=== PATIENT | female | born 1980 | race Caucasian/White ===

== ENCOUNTER 2018-10-16 09:53 | Emergency (ER) | payer MEDICARE, MEDICAID ==
[~2018-10-16] VITALS: Ht 167.6 cm; Wt 91.2 kg
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
[2018-10-16] MEDS ORDERED: ibuprofen tablet 400 MG TABLET PO ONE (10:45)
[2018-10-16] MEDS ORDERED: diphenhydrAMINE 50 mg/ml inj IM ONE (10:50)
[2018-10-16] MEDS ORDERED: LORazepam 2 mg/ml vial IM ONE (10:50)
[2018-10-16] MEDS ORDERED: haloperidol lactate 5mg/ml inj IM ONE (10:50)
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
[2018-10-16 12:23] LABS: BASOPHILS % (AUTO) 0.4 % (0-1); EOSINOPHILS % (AUTO) 0.2 % (0-6); HEMATOCRIT 33.8 % (35.0-45.0); HEMOGLOBIN 11.6 g/dl (12.0-16.0); LYMPHOCYTES # (AUTO) 2.8 X10'3 (1.1-4.8); LYMPHOCYTES % (AUTO) 31.1 % (21-51); MEAN CORPUSCULAR HEMOGLOBIN 33.7 PG (27.0-31.0); MEAN CORPUSCULAR HGB CONC 34.3 g/dL (33.0-36.5); MEAN CORPUSCULAR VOLUME 98.2 FL (78-98); MEAN PLATELET VOLUME 7.1 FL (7.4-10.4); MONOCYTES # (AUTO) 0.8 X10'3 (0-0.9); MONOCYTES % (AUTO) 8.6 % (2-12); NEUTROPHILS # (AUTO) 5.3 X10'3 (1.8-7.7); NEUTROPHILS % (AUTO) 59.7 % (42-75); PLATELET COUNT 487 X10'3 (140-440); RED BLOOD COUNT 3.44 X10'6 (4.20-5.60); RED CELL DISTRIBUTION WIDTH 12.9 % (11.5-14.5); WHITE BLOOD COUNT 8.9 X10'3 (4.5-11.0)
--- NOTE | 2018-10-16 12:28 | NUR ---
Pt released at 1210 from restraints and pt walked to the bathroom and with assistance, cleaned herself up and put on new hospital scrubs.
[2018-10-16 12:39] LABS: ALANINE AMINOTRANSFERASE 62 U/L (12-78); ALBUMIN 3.5 G/DL (3.4-5.0); ALBUMIN/GLOBULIN RATIO 0.9 (1.1-1.5); ALKALINE PHOSPHATASE 103 IU/L (46-116); ANION GAP 7 (8-16); ASPARTATE AMINO TRANSFERASE 26 U/L (10-37); BILIRUBIN,TOTAL 0.3 MG/DL (0.1-1.0); BLOOD UREA NITROGEN 7 MG/DL (7-18); BUN/CREATININE RATIO 14.3 (6.6-38.0); CHLORIDE 95 MMOL/L (99-107); CREATININE 0.49 MG/DL (0.40-0.90); GLUCOSE 126 MG/DL (70-104); POTASSIUM 4.1 MMOL/L (3.5-5.1); SODIUM 127 MMOL/L (135-145); TOTAL CARBON DIOXIDE 24.8 MMOL/L (24-32); TOTAL PROTEIN 7.4 G/DL (6.4-8.2); eGFR > 90 ML/MIN
[2018-10-16] MEDS ORDERED: GABA600T13 PO (12:55)
[2018-10-16] MEDS ORDERED: LINA145C PO (12:55)
[2018-10-16] MEDS ORDERED: CLOM50CA2 PO (12:55)
[2018-10-16] MEDS ORDERED: LITH300T26 PO ×2 (12:55)
[2018-10-16] MEDS ORDERED: FLUT1DIS INH (12:55)
[2018-10-16] MEDS ORDERED: MISO200T PO (12:55)
[2018-10-16] MEDS ORDERED: BENZ0.5T27 PO (12:55)
[2018-10-16] MEDS ORDERED: METO-395 PO (12:55)
[2018-10-16] MEDS ORDERED: DESO1TAB71 PO (12:55)
[2018-10-16] MEDS ORDERED: LORA10TA61 PO (12:55)
[2018-10-16] MEDS ORDERED: BENA20TA82 PO (12:55)
[2018-10-16] MEDS ORDERED: METF500T PO (12:55)
[2018-10-16] MEDS ORDERED: DIPH50CA37 PO (12:55)
--- NOTE | 2018-10-16 13:00 | NUR ---
Pt resting quietly in bed. No complaints. Pt was cooperative with blood draw and gave urine sample.
[2018-10-16 13:08] LABS: URINE HCG NEGATIVE (NEG)
[2018-10-16 13:08] LABS: ETHANOL < 0.010 GM/DL (0.0-0.010)
[2018-10-16 13:25] LABS: URINE AMPHETAMINE SCREEN NEGATIVE (Neg); URINE BARBITUATE SCREEN NEGATIVE (Neg); URINE BENZODIAZEPINES SCREEN NEGATIVE (Neg); URINE CANNABINOID SCREEN NEGATIVE (Neg); URINE COCAINE SCREEN NEGATIVE (Neg); URINE METHADONE SCREEN NEGATIVE (Neg); URINE OPIATE SCREEN NEGATIVE (Neg); URINE PHENCYCLIDINE SCREEN NEGATIVE (Neg)
[2018-10-16] MEDS ORDERED: OMEP-50 PO (13:48)
[2018-10-16] MEDS ORDERED: DOCU250C15 PO (13:48)
[2018-10-16] MEDS ORDERED: ICOS1CAP PO (14:10)
[2018-10-16] MEDS ORDERED: MELA3TAB64 PO (14:10)
[2018-10-16] MEDS ORDERED: ALBU18HF2 INH (14:10)
[2018-10-16] MEDS ORDERED: POLY17PO10 PO (14:10)
[2018-10-16] MEDS ORDERED: HYDR50CA PO (14:10)
[2018-10-16] MEDS ORDERED: CHOL10002 PO (14:10)
[2018-10-16] MEDS ORDERED: ASEN10TA (14:10)
[2018-10-16] MEDS ORDERED: HALO5TAB PO (14:14)
--- NOTE | 2018-10-16 14:34 | NUR ---
PACKET FAXED TO [facility]
--- NOTE | 2018-10-16 15:18 | NUR ---
Idalia Olivares phone number is [phone] Jane Victoria (her conservator) phone number is [phone]
[2018-10-16] MEDS ORDERED: benzonatate 100mg capsule PO ONE (15:35)
[2018-10-16] MEDS ORDERED: LORazepam 2 mg/ml vial IM PRN (15:35)
[2018-10-16] MEDS ORDERED: haloperidol 5mg tablet PO PRN (15:35)
[2018-10-16] MEDS: LORazepam 1 MG tablet PO PRN ×2 (15:40→20:08)
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
--- NOTE | 2018-10-16 17:00 | NUR ---
Pt remains sleeping in bed without complaints.
--- NOTE | 2018-10-16 17:56 | NUR ---
Jane Victoria (her conservator) phone number is [phone]
[2018-10-16] MEDS ORDERED: albuterol 2.5 MG/3 ML nebule NEB PRN (18:15)
[2018-10-16] MEDS ORDERED: polyethylene glycol 3350 17gm powd pack PO PRN (18:15)
--- NOTE | 2018-10-16 19:00 | NUR ---
The patient is resting on her bed. She is polite at this time and accepting redirection. She ate her dinner and appears calm at this time.
[2018-10-16] MEDS: budesonide 0.5mg/2ml UD nebule IH SCH (19:40)
[2018-10-16] MEDS: albuterol 2.5 MG/3 ML nebule NEB SCH (19:40)
[2018-10-16] MEDS: docusate sod 250mg capsule PO SCH (19:57)
[2018-10-16] MEDS: PALIPERIDONE 3 MG TAB.ER.24 PO SCH (19:58)
[2018-10-16] MEDS: benztropine 1mg tablet PO SCH (19:58)
[2018-10-16] MEDS: ICOSAPENT ETHYL 1 GM PO SCH (20:00)
[2018-10-16] MEDS ORDERED: lithium carbonate 300mg SR tablet (LithoBID) PO SCH (20:00)
[2018-10-16] MEDS: gabapentin 300mg capsule PO SCH (20:17)
--- NOTE | 2018-10-16 20:37 | NUR ---
The patient's skilled nursing staff, Idalia, was notified that we did not have some of the patient's medications here at [facility] and she stated she will bring in the am but she will call first.
--- NOTE | 2018-10-16 20:41 | NUR ---
Message left for the [facility] Public Guardian's office regarding client being in the ER and asked if they would contact us
[2018-10-16] MEDS ORDERED: Melatonin 3mg tablet PO SCH (21:00)
[2018-10-16] MEDS ORDERED: diphenhydrAMINE 25mg capsule PO SCH (21:00)
[2018-10-16] MEDS ORDERED: CLOMIPRAMINE 50 MG PO SCH (21:00)
[2018-10-16] MEDS ORDERED: metoprolol succinate 25mg (24-HOUR) SR. Tablet PO SCH (21:00)
--- NOTE | 2018-10-16 22:15 | NUR ---
The patient appears to be sleeping
[2018-10-17] MEDS ORDERED: gabapentin 300mg capsule PO SCH
--- NOTE | 2018-10-17 01:16 | NUR ---
The patient appears to be sleeping
--- NOTE | 2018-10-17 02:04 | NUR ---
The patient is sitting up and coughing. RT at the bedside to give a breathing treatment
--- NOTE | 2018-10-17 04:26 | NUR ---
discussed NA level of [address] Holbrook and orders received for a repeat CMP
[2018-10-17 04:40] LABS: ALANINE AMINOTRANSFERASE 52 U/L (12-78); ALBUMIN 3.1 G/DL (3.4-5.0); ALBUMIN/GLOBULIN RATIO 0.9 (1.1-1.5); ALKALINE PHOSPHATASE 92 IU/L (46-116); ANION GAP 7 (8-16); ASPARTATE AMINO TRANSFERASE 24 U/L (10-37); BILIRUBIN,TOTAL 0.2 MG/DL (0.1-1.0); BLOOD UREA NITROGEN 5 MG/DL (7-18); BUN/CREATININE RATIO 8.8 (6.6-38.0); CALCIUM 9.1 MG/DL (8.5-10.1); CHLORIDE 106 MMOL/L (99-107); CREATININE 0.57 MG/DL (0.40-0.90); GLUCOSE 92 MG/DL (70-104); SODIUM 139 MMOL/L (135-145); TOTAL CARBON DIOXIDE 26.4 MMOL/L (24-32); TOTAL PROTEIN 6.6 G/DL (6.4-8.2); eGFR > 90 ML/MIN
--- NOTE | 2018-10-17 06:30 | NUR ---
Awake upon change of shift of shift observation. Asking for "water, coffee, apple juice." Given water and juice at this time.
[2018-10-17] MEDS ORDERED: lithium carbonate 300mg SR tablet (LithoBID) PO SCH (07:00)
[2018-10-17] MEDS ORDERED: metFORMIN 500mg tablet PO SCH (07:00)
[2018-10-17] MEDS: budesonide 0.5mg/2ml UD nebule IH SCH (07:14)
[2018-10-17] MEDS: albuterol 2.5 MG/3 ML nebule NEB SCH ×3 (07:14→15:00)
[2018-10-17] MEDS ORDERED: ibuprofen tablet 400 MG TABLET PO PRN (07:45)
[2018-10-17] MEDS ORDERED: lisinopril 20mg tablet PO SCH (08:00)
[2018-10-17] MEDS ORDERED: loratadine 10mg tablet PO SCH (08:00)
[2018-10-17] MEDS ORDERED: ISIBLOOM PO SCH (08:00)
[2018-10-17] MEDS: ICOSAPENT ETHYL 1 GM PO SCH (08:00)
[2018-10-17] MEDS ORDERED: pantoprazole 40mg Tablet.DR PO SCH (08:00)
[2018-10-17] MEDS ORDERED: LINACLOTIDE PO SCH (08:00)
[2018-10-17] MEDS ORDERED: vitamin D (cholecalciferol) 1,000 unit tablet PO SCH (08:00)
--- NOTE | 2018-10-17 08:00 | NUR ---
Breakfast tray presented to patient. Ate 100% of her meal. Continues to ask for additional fluids. "I need a lot of coffee. It tastes so good."
[2018-10-17] MEDS: benztropine 1mg tablet PO SCH (08:07)
[2018-10-17] MEDS: PALIPERIDONE 3 MG TAB.ER.24 PO SCH (08:07)
[2018-10-17] MEDS: gabapentin 300mg capsule PO SCH ×2 (08:07→13:40)
[2018-10-17] MEDS: LORazepam 1 MG tablet PO PRN ×2 (08:09→14:18)
--- NOTE | 2018-10-17 08:30 | NUR ---
All medications administered as ordered without event.
[2018-10-17] MEDS: docusate sod 250mg capsule PO SCH (08:58)
[2018-10-17] MEDS ORDERED: nicotine 21mg patch - 24 hr TD ONE (09:30)
--- NOTE | 2018-10-17 09:30 | NUR ---
Bharti from [facility] at bedside talking with patient.
--- NOTE | 2018-10-17 10:30 | NUR ---
Idalia Olivares, patient's business support administrator, here to bring in patient's home meds and inquire about patient's status. Patient sleeping soundly at this time and undisturbed by her business support administrator.
--- NOTE | 2018-10-17 13:00 | NUR ---
Served lunch. Ate 100% of her meal.
--- NOTE | 2018-10-17 14:00 | NUR ---
Received information that patient had been accepted at [facility]. Will be brought upstairs at 1518
--- NOTE | 2018-10-17 15:20 | NUR ---
Discharge Note Patient discharged to [facility] ([facility]) via wheelchair, with all her personal belongings. Accompanied by security and [facility] staff
[2018-10-17 16:17] VITALS: BP 123/71
== END 2018-10-17 15:20 ==
LOC: ER 09:54
DX: F20.9 Schizophrenia, unspecified (principal); G89.29 Other chronic pain; M25.571 Pain in right ankle and joints of right foot; M25.572 Pain in left ankle and joints of left foot; M25.551 Pain in right hip; M25.552 Pain in left hip; M79.671 Pain in right foot; M79.672 Pain in left foot; F31.9 Bipolar disorder, unspecified; R62.50 Unspecified lack of expected normal physiological development in childhood; Z91.14 Patient's other noncompliance with medication regimen; E11.9 Type 2 diabetes mellitus without complications; Z56.0 Unemployment, unspecified; Z88.1 Allergy status to other antibiotic agents; Z79.84 Long term (current) use of oral hypoglycemic drugs; Z79.899 Other long term (current) drug therapy
CPT/HCPCS: 36415; 73600; 80053; 80178; 80305; 80320; 81025; 82948; 84443; 85025; 94640; 94760; 96372; 99285; J1200; J1630; J2060; Q0163; J7626

== ENCOUNTER 2018-10-17 15:19 | Inpatient (IN) | payer MEDICARE, MEDICAID ==
[~2018-10-17] VITALS: Ht 175.3 cm; Wt 87.8 kg
[~2018-10-17 15:19] MED LIST: ALBU18HF2 INH; ASEN10TA; BENA20TA82 PO; BENZ0.5T27 PO; CHOL10002 PO; CLOM50CA2 PO; DESO1TAB71 PO; DIPH50CA37 PO; DOCU250C15 PO; FLUT1DIS INH; GABA600T13 PO; HALO5TAB PO; HYDR50CA PO; ICOS1CAP PO; LINA145C PO; LITH300T26 PO; LORA10TA61 PO; MELA3TAB64 PO; METF500T PO; METO-395 PO; MISO200T PO; OMEP-50 PO; POLY17PO10 PO
[2018-10-17] MEDS ORDERED: tuberculin, purif. prot. deriv. 5 units/0.1ml ID ONE (16:00)
[2018-10-17] MEDS ORDERED: acetaminophen 325mg tablet PO PRN (16:00)
[2018-10-17] MEDS ORDERED: magnesium hydroxide 30ml (MOM) UD suspension PO PRN (16:00)
[2018-10-17] MEDS ORDERED: loperamide 2mg capsule PO PRN (16:00)
[2018-10-17] MEDS ORDERED: LORazepam 1 MG tablet PO PRN (16:00)
[2018-10-17] MEDS ORDERED: mag hydrox/Alum hydrox/simeth 30ml oral suspension PO PRN (16:00)
--- NOTE | 2018-10-17 16:05 | NUR ---
Conservator: Jane Victoria VM left with [facility] Guardian office for Jane Victoria who reportably is this pt's conservator. Asked her to call the unit so we can fax her admitting paperwork to sign.
[2018-10-17 17:15] VITALS: BP 137/87
--- NOTE | 2018-10-17 18:07 | NUR ---
ADMIT NOTE: Pt arrived on floor at 1545 Legal hold: 5150 Client on involuntary status for GD. Report received from Darnell LUBIN, with use of SBAR. Why are they here: The patient is a conserved 38 year old female admitted on a 5150 hold for GD. Patient has h/o mild intellect disorder, bipolar and schizophrenia and was BIB her jail staff who reported she had been non-compliant with medications, was violent towards others, verbally hostile with staff, throwing objects and spitting. A 5150 was written for GD. U tox was negative. She reported AH & VH, Voices are taking me away. Assessment What has happened this shift: 1:1 admission assessment performed at bedside. Skin-to skin assessment was done by Amber Deshpande RN & Jennifer. MRSA swab was collected and sent to lab. PPD was placed. Pt was showered, clothing removed and placed into wash. The patients belongings were collected, inventoried and stored in a locked cabinet. She appears to be of stated age. Pt requests tampon and clothing, reports she started her menses. Pt has somewhat delayed speech but is able to answer questions appropriately. She reports trouble hearing in her left ear. Reports she is prescribed glasses but doesnt like to wear them. She has non-productive cough, respiratory therapy came during assessment to do tx. She reported burning sensation in her throat after tx. She also c/o My butt is burning and itchy because I have a hemorrhoid. She states, I also need a bra, my boobs hurt and they have gangrenous fluid coming out of them and it grosses me out. RN did not observe any leaking. Pt reports she is on control and she would like to be off of it. Reports she is sexually active. She would like the depo shot instead of the pill. Pt reports she often has trouble sleeping. 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 Pt is a poor historian and often says Yes to every question asked. She is insistent on getting flavored water and a new outfit. No other concerns voiced at this time. SI/HI: Denies A/VH: Denies Sleep: n/a ADL's: Independent Group attendance: client arrived after groups were over. Were Meds taken: n/a Any med S/E: n/a Mental Status Exam Appearance: Pt wearing green scrubs, disheveled hair Eye contact: direct Behavior: curious, needy (asking for clothes and apple juice multiple times/multiple people) Speech: Clear, slurred at times, somewhat slow rate Mood: euthymic Affect: flat Thought process: goal oriented Thought Content: pt asks multiple times to get new clothes and juice. Cognition: A & O X4 Insight: Poor Judgment: Poor Interventions PRN's used: n/a Therapeutic interventions: 1:1 assessment at bedside, provided therapeutic communication, encouraged to go to groups in AM, coping skills, medication administration/education/monitoring for compliance, monitor Q15 minutes for safety. Restraints/seclusion/emergency medication: Justification of Continued Inpatient Treatment: Pt. was non-medication compliant which led to her GD status. Without adequate treatment for current situation, pt is at high risk for readmission if discharged at this time.
[2018-10-17] MEDS: NICOTINE POLACRILEX 2 MG LOZENGE MM PRN ×2 (19:21→23:15)
[2018-10-17] MEDS: hydrOXYzine 25 MG tablet PO PRN (19:29)
[2018-10-17 20:00] VITALS: BP 153/73
[2018-10-17 20:29] LABS: CLARITY,URINE CLEAR (Clear); COLOR,URINE YELLOW (Yellow); GLUCOSE, URINE NEGATIVE (Neg); KETONES,URINE NEGATIVE (Neg); LEUKOCYTE ESTERASE ,URINE NEGATIVE (Neg); NITRITES, URINE NEGATIVE (Neg); OCCULT BLOOD,URINE NEGATIVE (Neg); PROTEIN,URINE NEGATIVE (Neg); UROBILINOGEN,URINE 0.2 E.U/dL (0.2-1.0)
[2018-10-17 20:37] LABS: UA COLLECTION TYPE CLN CATCH MIDSTREAM
[2018-10-17] MEDS: acetaminophen 325mg tablet PO PRN (20:38)
[2018-10-18 00:30] VITALS: BP 143/84
--- NOTE | 2018-10-18 00:30 | NUR ---
Nursing Note: Med Recc completed and it was noted that pt. is a diabetic and has htn. Accucheck obtained and was 113, V/S remain WNL. HS medications administered at this time per orders from Dr. Dunlap.
[2018-10-18] MEDS ORDERED: haloperidol 5mg tablet PO PRN (01:15)
[2018-10-18] MEDS ORDERED: polyethylene glycol 3350 17gm powd pack PO PRN (01:15)
[2018-10-18] MEDS: NICOTINE POLACRILEX 2 MG LOZENGE MM PRN ×3 (01:20→16:04)
[2018-10-18] MEDS: LORazepam 1 MG tablet PO PRN ×3 (01:30→20:26)
[2018-10-18] MEDS: Melatonin 3mg tablet PO SCH ×2 (01:30→20:38)
[2018-10-18] MEDS: haloperidol 5mg tablet PO PRN ×3 (01:35→20:26)
[2018-10-18] MEDS ORDERED: albuterol 2.5 MG/3 ML nebule NEB PRN (01:40)
[2018-10-18] MEDS ORDERED: lithium carbonate 450mg CR tablet PO SCH ×2 (01:44→01:45)
[2018-10-18] MEDS: lithium carbonate 300mg SR tablet (LithoBID) PO SCH ×3 (01:49→20:39)
--- NOTE | 2018-10-18 04:24 | NUR ---
Nursing Progress Note: Legal hold: LPS Client on involuntary status for GD Report received from nurse with use of SBAR: TRISTIAN Patrick Why are they here: The patient is a conserved 38 year old female admitted on a 5150 hold for GD. Patient has h/o mild intellect disorder, bipolar and schizophrenia and was BIB her snf staff who reported she had been non-compliant with medications, was violent towards others, verbally hostile with staff, throwing objects and spitting. A 5150 was written for GD. U tox was negative. She reported AH & VH, Voices are taking me away. Assessment What has happened this shift: Pt. up and around the unit at the beginning of the shift and throughout the shift, she presents with poor boundaries at times, however is able to be successfully redirected. She changes her cloths many times throughout the shift and must be reminded by staff not to come out into the hallway without clothing on, pt. voices understanding. 1:1 completed at bedside, pt. is cooperative, restless, anxious, and presents a somewhat hypomanic. She is A&O X3, however does not know why she is on the unit. Pt. denies S/I, H/I, or H/A, however she does appear to be internally preoccupied at times and she is witnessed by staff to be making bizarre motions to herself while alone in her room. Pt. makes constant requests to all staff members throughout the shift, requests for medications, and c/o medical ailments. U/A obtained per pt. c/o urinary frequency and WNL, however pt. is incontinent X2 during the shift. Pt. also c/o a dry cough and runny nose, lung sounds are clear bilaterally and VS WNL, will continue to monitor. Pt. also reports constipation, prune juice administered, and will endorse to AM shift to monitor. S/I, H/I: Denies A/VH: Denies, however appears to be internally preoccupied at times Sleep: Insomnia, pt. unable to sleep until approximately 0130 ADL's: Requires direction and encouragement from staff, pt. incontinent at times Group attendance: Attends HS snack Were meds taken: Yes Any med S/E: None Mental Status Exam Appearance: Disheveled, however appropriately dressed Eye contact: Good Behavior: Cooperative, restless, anxious, poor boundaries, and presents as slightly hypomanic Speech: Hyperverbal and child-like Mood: Restless, preoccupied with being in a new environment Affect: Animated Thought process: Tangental with racing thoughts Thought Content: Possible H/A, and preoccupation with material needs, food, medications, and medical conditions Cognition: A&O X3 (not to why she is here) Insight: Poor Judgment: Poor Interventions PRN's used: Atrax, Ativan X2, Tylenol, and Haldol Therapeutic interventions: Introduced self and established rapport, maintained a safe and therapeutic environment, monitored behavior and need for intervention, provided clear and simple instructions, reoriented to reality as needed, completed medication reconciliation, and maintained Q 15 min safety checks. Restraints/seclusion/emergency medication: N/A Justification of Continued Inpatient Treatment: Pt. requires interruption of current crisis, medication adjustments, and a safe and therapeutic environment.
[2018-10-18 07:25] LABS: HEMOGLOBIN A1C 5.6 % (4.5-6.2)
[2018-10-18] MEDS: loratadine 10mg tablet PO SCH (07:28)
[2018-10-18] MEDS: metFORMIN 500mg tablet PO SCH ×2 (07:28→17:50)
[2018-10-18] MEDS: benztropine 1mg tablet PO SCH ×2 (07:29→20:29)
[2018-10-18] MEDS: lisinopril 20mg tablet PO SCH (07:30)
[2018-10-18] MEDS: docusate sod 250mg capsule PO SCH ×2 (07:30→20:30)
[2018-10-18 07:31] LABS: CHOL/HDL RATIO 4.5 (0.00-4.99); CHOLESTEROL 161 MG/DL (0-200); HDL CHOLESTEROL 36 MG/DL (35-60); LDL CHOLESTEROL 103 MG/DL (50-100); TRIGLYCERIDES 117 MG/DL (20-135)
[2018-10-18] MEDS: vitamin D (cholecalciferol) 1,000 unit tablet PO SCH (07:32)
[2018-10-18] MEDS: pantoprazole 40mg Tablet.DR PO SCH (07:32)
[2018-10-18] MEDS: gabapentin 300mg capsule PO SCH ×2 (07:33→15:56)
[2018-10-18] MEDS ORDERED: PALIPERIDONE 3 MG TAB.ER.24 PO SCH (08:00)
[2018-10-18] MEDS: Icosapent Ethyl (Vascepa) 2 CAP) PO SCH ×3 (08:00→20:30)
[2018-10-18] MEDS: nicotine 21mg patch - 24 hr TD SCH (08:00)
[2018-10-18] MEDS ORDERED: non-formulary drug (Fluticasone/Salmeterol (Advair 100-50 Diskus) 1 PUFFS) INH SCH (08:00)
[2018-10-18] MEDS: DESOGESTREL ETHINYL ESTRADIOL PO SCH ×2 (08:00→15:46)
[2018-10-18] MEDS: Linaclotide (Linzess) 72 MCG) PO SCH ×2 (08:00→15:48)
[2018-10-18] MEDS: albuterol 2.5 MG/3 ML nebule NEB SCH ×3 (08:46→20:34)
[2018-10-18] MEDS: budesonide 0.5mg/2ml UD nebule IH SCH ×2 (08:46→20:35)
[2018-10-18 09:19] VITALS: BP 153/85
[2018-10-18] MEDS: acetaminophen 325mg tablet PO PRN (12:44)
[2018-10-18] MEDS: benzocaine/menthol oral lozeng 1 EACH BOX MM PRN (16:41)
--- NOTE | 2018-10-18 17:36 | NUR ---
Nursing Progress Note: Legal hold: LPS Client on involuntary status for GD Report received from nurse with use of SBAR: TRISTIAN Salazar Why are they here: The patient is a conserved 38 year old female admitted on a 5150 hold for GD. Patient has h/o mild intellect disorder, bipolar and schizophrenia and was BIB her detention staff who reported she had been non-compliant with medications, was violent towards others, verbally hostile with staff, throwing objects and spitting. A 5150 was written for GD. U tox was negative. She reported AH & VH, Voices are taking me away. Assessment What has happened this shift: Received Pt standing in her room doorway at the beginning of the shift. Pt receptive to conversation, mostly to make her needs known and has rapid fire demands throughout the day r/t food, clothing, phone calls, and wanting to leave. She has poor boundaries, yet is able to be redirected at times. She is uncomfortable and has a low tolerance for not having her routines, clothing and possessions, and becomes angry and yell at times aggressively. C/O constipation at beginning of shift, then had a very large bowel movement. Did not attend groups and states she will not. Irritated at the lack of meat on her food tray and her inability to eat what she wants and when she wants. C/O body aches and received tylenol with good effect. Used nicotine Gaby. Twice and refused her nicotine patch. She became agitated in afternoon r/t clothing and food issues and willingly took prn oral haldol and ativan, which calmed her.. Pt showered and performed adls with minimal prompting. S/I, H/I: Denies A/VH: Denies, however appears to be internally preoccupied at times Sleep: Took nap after breakfast ADL's: Requires direction and encouragement from staff, pt. incontinent at times Group attendance: No, and made sure staff knew she did not want to go. Were meds taken: Yes Any med S/E: None Mental Status Exam Appearance: Disheveled, however appropriately dressed Eye contact: Good Behavior: Cooperative, restless, anxious, poor boundaries, and presents as slightly hypomanic, intrusive at times Speech: Hyperverbal and child-like Mood: Restless, preoccupied with being in a new environment Affect: Animated Thought process: Tangental with ruminating thoughts Thought Content: Preoccupation with material needs, food, cloting, medications, and medical conditions Cognition: A&O X3 (not to why she is here) Insight: Poor Judgment: Poor Interventions PRN's used: Nicotine Gaby. X2, Ativan, Tylenol, Chloraseptic Gaby. and Haldol Therapeutic interventions: Introduced self and established rapport, maintained a safe and therapeutic environment, monitored behavior and need for intervention, provided clear and simple instructions, reoriented to reality as needed, and maintained Q 15 min safety checks. Restraints/seclusion/emergency medication: N/A Justification of Continued Inpatient Treatment: Pt. requires interruption of current crisis, medication adjustments, and a safe and therapeutic environment.
--- NOTE | 2018-10-18 19:41 | NUR ---
This patient has been ambulatory, she yells at other patients. Patient dumps her trash can in the hallway. The patient is redirected to her room. This patient is advised that yelling at other patients and threatening is wrong and not allowed. The patient is angry but exhibits understanding. Patient states she is depressed. PRN's will be given for anxiety and anger.
[2018-10-18 19:47] VITALS: BP 157/99
[2018-10-18] MEDS: metoprolol succinate 25mg (24-HOUR) SR. Tablet PO SCH (20:25)
[2018-10-18] MEDS ORDERED: CLOMIPRAMINE HCL 50 MG PO SCH (21:00)
[2018-10-18] MEDS ORDERED: diphenhydrAMINE 25mg capsule PO SCH (21:00)
[2018-10-19] MEDS: albuterol 2.5 MG/3 ML nebule NEB SCH ×4 (02:00→20:00)
--- NOTE | 2018-10-19 05:16 | NUR ---
Nursing Progress Note: Legal hold: LPS Client on involuntary status for GD Report received from TRISTIAN Muñoz, with use of SBAR. Why are they here: The patient is a conserved 38 year old female admitted on a 5150 hold for GD. Patient has h/o mild intellect disorder, bipolar and schizophrenia and was BIB her retirement staff who reported she had been non-compliant with medications, was violent towards others, verbally hostile with staff, throwing objects and spitting. A 5150 was written for GD. U tox was negative. She reported AH & VH, Voices are taking me away. Assessment At shift change the patient walked out of her room with a trash can in her hand. She looked angry, she then turned the trash can upside down and dumped the trash onto the floor. The patient was returned to her room and rules were explained to the patient, she exhibited understanding but remained angry. The patient states she is angry because some of her clothes are not here. A few minutes later the patient came into another patients room and yelled at him, she explained her dislike for the other patient. The patient was returned to her room. In the room this patient This production underwriter advised the patient that yelling and threatening other patients would not be tolerated at all. The patient was advised that if there is anger or other issues that they could be dealt with by discussion and dealing with identified problems. The patient was also advised by this production underwriter that if medications for anxiety are needed that they would be offered. This patient exhibited understanding. This patient was later given her night time ativan, haldol, bendaryl, and atarax. The patient calmed, ate some snacks. At the moment of going to sleep patient was much calmer and was polite to this production underwriter. The patient was advised that she was in a safe place. Q15 minute rounding are being done for patient safety. S/I, H/I: Denies A/VH: Denies, however appears to be internally preoccupied at times Sleep: Patient states she has not been sleeping well. ADL's: Requires direction and encouragement from staff. Limitations on behavior were placed and explained. Group attendance: Patient did not attend group on day shift. Were meds taken: Yes. Any med S/E: None Mental Status Exam Appearance: Disheveled, however appropriately dressed Eye contact: Good Behavior: Angry, yelling, threatening. With Rx medications and redirection patient calms and then goes to sleep. Speech: Hyperverbal. Mood: Restless, angry. Affect: Animated Thought process: Tangental with ruminating thoughts. Thought Content: Preoccupation with material needs, food, clothing, medications, and medical conditions Cognition: A&O X3 (not to why she is here) Insight: Poor Judgment: Poor Interventions PRN's used: Nicotine Gaby. X2, Ativan, Tylenol, Chloraseptic Gaby. and Haldol Therapeutic interventions: Introduced self and established rapport, maintained a safe and therapeutic environment, monitored behavior and need for intervention, provided clear and simple instructions, reoriented to reality as needed, and maintained Q 15 min safety checks. Restraints/seclusion/emergency medication: N/A Justification of Continued Inpatient Treatment: Pt. requires interruption of current crisis, medication adjustments, and a safe and therapeutic environment.
[2018-10-19] MEDS: metFORMIN 500mg tablet PO SCH ×2 (07:30→18:02)
[2018-10-19] MEDS: LORazepam 1 MG tablet PO PRN ×2 (07:30→20:14)
[2018-10-19] MEDS: haloperidol 5mg tablet PO PRN ×2 (07:30→20:13)
[2018-10-19] MEDS: gabapentin 300mg capsule PO SCH ×4 (07:30→23:46)
[2018-10-19] MEDS: vitamin D (cholecalciferol) 1,000 unit tablet PO SCH (07:30)
[2018-10-19] MEDS: loratadine 10mg tablet PO SCH (07:31)
[2018-10-19] MEDS: benztropine 1mg tablet PO SCH ×2 (07:31→20:09)
[2018-10-19] MEDS: docusate sod 250mg capsule PO SCH ×2 (07:31→20:12)
[2018-10-19] MEDS: lithium carbonate 300mg SR tablet (LithoBID) PO SCH ×2 (07:31→20:08)
[2018-10-19] MEDS: lisinopril 20mg tablet PO SCH (07:33)
[2018-10-19] MEDS: Linaclotide (Linzess) 72 MCG) PO SCH (07:34)
[2018-10-19] MEDS: Icosapent Ethyl (Vascepa) 2 CAP) PO SCH ×2 (07:35→20:19)
[2018-10-19] MEDS: nicotine 21mg patch - 24 hr TD SCH (07:35)
[2018-10-19] MEDS: pantoprazole 40mg Tablet.DR PO SCH (07:46)
[2018-10-19] MEDS: budesonide 0.5mg/2ml UD nebule IH SCH ×2 (08:00→20:00)
[2018-10-19] MEDS: DESOGESTREL ETHINYL ESTRADIOL PO SCH (08:00)
[2018-10-19] MEDS ORDERED: PALIPERIDONE 3 MG TAB.ER.24 PO SCH (08:00)
[2018-10-19 08:08] VITALS: BP 131/88
[2018-10-19] MEDS: NICOTINE POLACRILEX 2 MG LOZENGE MM PRN ×4 (09:24→22:17)
[2018-10-19] MEDS: hydrOXYzine 25 MG tablet PO PRN (09:24)
[2018-10-19] MEDS ORDERED: haloperidol lactate 5mg/ml inj ONE (10:24)
[2018-10-19] MEDS ORDERED: diphenhydrAMINE 50 mg/ml inj ONE (10:24)
[2018-10-19] MEDS ORDERED: diphenhydrAMINE 50 mg/ml inj IV ONE (10:25)
[2018-10-19] MEDS ORDERED: haloperidol lactate 5mg/ml inj IM ONE (10:25)
[2018-10-19] MEDS ORDERED: LORazepam 2 mg/ml vial IM ONE (10:55)
--- NOTE | 2018-10-19 12:47 | NUR ---
Pt received an IM injection at 1045 it took her over an hour to calm down. She is finally asleep on her bed and this nurse is unable to wake her up at this time to administer her medication or do an accu check. Will notify the doctor
[2018-10-19] MEDS ORDERED: diphenhydrAMINE 25mg capsule PO ONE (15:55)
[2018-10-19] MEDS ORDERED: haloperidol 5mg tablet PO ONE (15:55)
[2018-10-19] MEDS ORDERED: LORazepam 1 MG tablet PO ONE (15:55)
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
--- NOTE | 2018-10-19 17:46 | NUR ---
NA woke patient brought her to the [facility]creation and gave her her dinner tray w/o getting the nurse first to do an accu check.
[2018-10-19] MEDS: benzocaine/menthol oral lozeng 1 EACH BOX MM PRN (18:15)
[2018-10-19 20:00] VITALS: BP 145/73
[2018-10-19] MEDS: Melatonin 3mg tablet PO SCH (20:10)
[2018-10-19] MEDS: PALIPERIDONE 3 MG TAB.ER.24 PO SCH (20:11)
[2018-10-19] MEDS: metoprolol succinate 25mg (24-HOUR) SR. Tablet PO SCH (20:12)
[2018-10-19] MEDS: divalproex sodium 250mg tablet PO SCH (20:22)
--- NOTE | 2018-10-20 00:44 | NUR ---
Nursing Progress Note: Legal hold: LPS Client on involuntary status for GD Report received from TRISTIAN Muñoz with use of SBAR Why are they here: The patient is a conserved 38 year old female admitted on a 5150 hold for GD. Patient has h/o mild intellect disorder, bipolar and schizophrenia and was BIB her prison staff who reported she had been non-compliant with medications, was violent towards others, verbally hostile with staff, throwing objects and spitting. A 5150 was written for GD. U tox was negative. She reported AH & VH, Voices are taking me away. Assessment What has happened this shift: This patient [facility] this typewriter [facility] shift [facility]. Patient is groggy, she ambulates slowly. Her scrub top is littered with food particles and water. This patient exhibits a flat affect. She states she wants to know where her clothes are? Patients room is in disarray with items scattered all over. Patient reported violent and throwing things on day shift. The patient starts to take off her clothes off in front of this typewriter mechanic. The patient is re-directed. She is instructed to sit on her bed. The patient and this typewriter mechanic discuss boundries, to include no violence. The patient listens. The patient is advised that we are working with the people from her prison to get new clothing here, probably tomorrow. The patient exhibits understanding. This patient denies S/I, or H/I, She denies voices at this time, she does however state "I miss my voices, they are a little bit bad, and a little bit good." The patient is told there will be no violence tonight, against others or herself. The patient is asked about her needs. The patient mentions snacks and prune juice. This patient made a pact with this typewriter mechanic to behave. In return she would be treated well tonight. nicotine lozenge, prune juice, conversation with this typewriter mechanic and follow up as needed. The patients blood sugar was checked. PRN meds were given later in shift. The patient was cooperative and medication compoliant. Prior to bed she had a cup of hot chocolate and was satisfied. The patient changed into clean scrubs, washed her face, and cleaned and organized her room. A sitter is outside room in the hallway. The patient retired to sleep. Patient was up late in the evening and had a popsicle. She was advised that she was in a safe place. She exhibited understanding. She returned to bed. She presented as cooperative and without complaints. S/I, H/I: Denies A/VH: Denies, however appears to be internally preoccupied at times Sleep: Napped on and off after PRNs on day shift. ADL's: Personal hygiene discussed. Patient exhibits understanding. Group attendance: Not on days. Were meds taken: Yes Any med S/E: None. Mental Status Exam Appearance: Disheveled removes clothing coming down the horner w/o pants numerous times Eye contact: Fair Behavior: Poor boundaries, intrusive Speech: Hyperverbal Mood: Restless Affect: Animated Thought process: Tangential Thought Content: Preoccupation all day with getting needs met requesting clothing, meds and food. Cognition: Alert, became more focused when re-directed. Insight: Poor Judgment: Poor Interventions PRN's used: Nicotine Therapeutic interventions: 1:1 assessment, provided therapeutic communication with active listening, medication administration/monitoring/education, provided redirection and praise when deserved, provided PRNs as needed; encouragement to perform self care/personal hygiene and attend groups, Q 15 min safety checks. Restraints/seclusion/emergency medication: N/A Justification of Continued Inpatient Treatment: Pt. requires interruption of current crisis, medication adjustments, and a safe and therapeutic environment.
[2018-10-20] MEDS: NICOTINE POLACRILEX 2 MG LOZENGE MM PRN ×4 (05:59→19:59)
[2018-10-20] MEDS: gabapentin 300mg capsule PO SCH ×3 (07:52→20:12)
[2018-10-20] MEDS: divalproex sodium 250mg tablet PO SCH ×2 (07:52→21:22)
[2018-10-20] MEDS: lithium carbonate 300mg SR tablet (LithoBID) PO SCH ×2 (07:55→20:18)
[2018-10-20] MEDS: pantoprazole 40mg Tablet.DR PO SCH (07:56)
[2018-10-20] MEDS: benztropine 1mg tablet PO SCH ×2 (07:56→20:17)
[2018-10-20] MEDS: loratadine 10mg tablet PO SCH (07:57)
[2018-10-20] MEDS: lisinopril 20mg tablet PO SCH (07:57)
[2018-10-20] MEDS: docusate sod 250mg capsule PO SCH ×2 (07:58→20:12)
[2018-10-20] MEDS: vitamin D (cholecalciferol) 1,000 unit tablet PO SCH (07:58)
[2018-10-20 08:00] VITALS: BP 100/71
[2018-10-20] MEDS: nicotine 21mg patch - 24 hr TD SCH (08:00)
[2018-10-20] MEDS: budesonide 0.5mg/2ml UD nebule IH SCH ×2 (08:00→20:00)
[2018-10-20] MEDS: albuterol 2.5 MG/3 ML nebule NEB SCH ×3 (08:00→20:00)
[2018-10-20] MEDS: DESOGESTREL ETHINYL ESTRADIOL PO SCH (08:03)
[2018-10-20] MEDS: Linaclotide (Linzess) 72 MCG) PO SCH (08:03)
[2018-10-20] MEDS: Icosapent Ethyl (Vascepa) 2 CAP) PO SCH ×2 (08:03→20:25)
[2018-10-20] MEDS: PALIPERIDONE 3 MG TAB.ER.24 PO SCH ×2 (08:04→20:17)
[2018-10-20] MEDS: metFORMIN 500mg tablet PO SCH ×3 (08:05→20:26)
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
[2018-10-20] MEDS: acetaminophen 325mg tablet PO PRN (11:05)
--- NOTE | 2018-10-20 17:49 | NUR ---
Nursing Progress Note: Legal hold: LPS Client on involuntary status for GD Report received from nurse with use of SBAR: Ann Marie Martinez RN Why are they here: The patient is a conserved 38 year old female admitted on a 5150 hold for GD. Patient has h/o mild intellect disorder, bipolar and schizophrenia and was BIB her halfway staff who reported she had been non-compliant with medications, was violent towards others, verbally hostile with staff, throwing objects and spitting. A 5150 was written for GD. U tox was negative. She reported AH & VH, Voices are taking me away. Assessment What has happened this shift: Received Pt walking in the horner near the nurses station at the beginning of the shift, and immediately began to ask for needs in a rapid fire manner. Pts agitation escalated in the morning around lack of clothes, wanting to leave, wanting drinks and different food. Placed on 1:1 observation and selective limit setting with some rewards helped to bring down her agitation, although still needy and intrusive. Mood shifted through day to pleasant and somewhat cooperative. Took nap in late morning and woke more calm. Pt receptive to conversation as well as making her needs known. She has poor boundaries, yet is able to be redirected. Her low tolerance for not having her routines remains, and becomes angry and yell at times. Did not attend groups. Has responded well to the 1:1 observation. Pt showered in afternoon and put on green scrubs while her clothes are being washed. Attempt was made to have her eat with others, but she attempted to take things from other pts trays and was returned to the recreation room. S/I, H/I: Denies A/VH: Denies, however appears to be internally preoccupied at times Sleep: Took nap after breakfast ADL's: Requires direction and encouragement from staff, pt. incontinent at times Group attendance: No, and made sure staff knew she did not want to go. Were meds taken: Yes Any med S/E: None Mental Status Exam Appearance: Disheveled, however appropriately dressed Eye contact: Good Behavior: Cooperative, restless, anxious, poor boundaries, and presents as slightly hypomanic, intrusive at times Speech: Hyperverbal and child-like Mood: Restless, preoccupied with being in a new environment Affect: Animated Thought process: Tangential with ruminating thoughts Thought Content: Preoccupation with material needs, food, clothing, medications, and medical conditions Cognition: A&O X3 (not to why she is here) Insight: Poor Judgment: Poor Interventions PRN's used: Nicotine Gaby. X2, Tylenol, Chloraseptic Gaby. Therapeutic interventions: Introduced self and established rapport, maintained a safe and therapeutic environment, monitored behavior and need for intervention, provided clear and simple instructions, reoriented to reality as needed, and maintained Q 15 min safety checks. Restraints/seclusion/emergency medication: N/A Justification of Continued Inpatient Treatment: Pt. requires interruption of current crisis, medication adjustments, and a safe and therapeutic environment. Addendum: 10/20/18 at 1814 by Dawit Fernandez RN Pt began to eat dinner before 1700 BS could be tested.
[2018-10-20] MEDS: LORazepam 1 MG tablet PO PRN (20:16)
[2018-10-20] MEDS: hydrOXYzine 25 MG tablet PO PRN (20:16)
[2018-10-20] MEDS: Melatonin 3mg tablet PO SCH (20:16)
[2018-10-20] MEDS: metoprolol succinate 25mg (24-HOUR) SR. Tablet PO SCH (20:17)
--- NOTE | 2018-10-20 20:39 | NUR ---
pt refusing respiratory tx, no sob/whz noted, 98% ra
[2018-10-21] MEDS: albuterol 2.5 MG/3 ML nebule NEB SCH ×2 (02:00→08:00)
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
[2018-10-21] MEDS: gabapentin 300mg capsule PO SCH ×3 (07:35→21:19)
[2018-10-21] MEDS: vitamin D (cholecalciferol) 1,000 unit tablet PO SCH (07:36)
[2018-10-21] MEDS: PALIPERIDONE 3 MG TAB.ER.24 PO SCH ×2 (07:36→21:16)
[2018-10-21] MEDS: docusate sod 250mg capsule PO SCH ×2 (07:36→21:16)
[2018-10-21] MEDS: loratadine 10mg tablet PO SCH (07:36)
[2018-10-21] MEDS: lithium carbonate 300mg SR tablet (LithoBID) PO SCH ×2 (07:36→21:16)
[2018-10-21] MEDS: benztropine 1mg tablet PO SCH ×2 (07:37→21:18)
[2018-10-21] MEDS: lisinopril 20mg tablet PO SCH (07:37)
[2018-10-21] MEDS: Linaclotide (Linzess) 72 MCG) PO SCH (07:39)
[2018-10-21] MEDS: Icosapent Ethyl (Vascepa) 2 CAP) PO SCH ×2 (07:39→21:19)
[2018-10-21] MEDS: DESOGESTREL ETHINYL ESTRADIOL PO SCH (07:40)
[2018-10-21] MEDS: pantoprazole 40mg Tablet.DR PO SCH (07:40)
[2018-10-21] MEDS: LORazepam 1 MG tablet PO PRN (07:48)
[2018-10-21] MEDS: nicotine 21mg patch - 24 hr TD SCH (07:48)
[2018-10-21 08:00] VITALS: BP 133/73
[2018-10-21] MEDS: budesonide 0.5mg/2ml UD nebule IH SCH (08:00)
[2018-10-21] MEDS: NICOTINE POLACRILEX 2 MG LOZENGE MM PRN ×3 (08:02→17:51)
[2018-10-21] MEDS: divalproex sodium 250mg tablet PO SCH ×2 (08:31→21:16)
[2018-10-21] MEDS: acetaminophen 325mg tablet PO PRN (14:33)
[2018-10-21 16:04] LABS: BASOPHILS # (AUTO) 0.1 X10'3 (0-0.2); EOSINOPHILS % (AUTO) 0.3 % (0-6); HEMATOCRIT 35.1 % (35.0-45.0); HEMOGLOBIN 12.1 g/dl (12.0-16.0); LYMPHOCYTES # (AUTO) 3.5 X10'3 (1.1-4.8); LYMPHOCYTES % (AUTO) 39.9 % (21-51); MEAN CORPUSCULAR HEMOGLOBIN 33.8 PG (27.0-31.0); MEAN CORPUSCULAR HGB CONC 34.5 g/dL (33.0-36.5); MEAN PLATELET VOLUME 6.8 FL (7.4-10.4); MONOCYTES # (AUTO) 0.7 X10'3 (0-0.9); NEUTROPHILS # (AUTO) 4.4 X10'3 (1.8-7.7); NEUTROPHILS % (AUTO) 50.8 % (42-75); PLATELET COUNT 527 X10'3 (140-440); RED BLOOD COUNT 3.58 X10'6 (4.20-5.60); RED CELL DISTRIBUTION WIDTH 13.6 % (11.5-14.5); WHITE BLOOD COUNT 8.7 X10'3 (4.5-11.0)
[2018-10-21] MEDS: clindamycin 150mg capsule PO SCH ×2 (16:06→21:15)
[2018-10-21] MEDS: metFORMIN 500mg tablet PO SCH (16:07)
--- NOTE | 2018-10-21 16:22 | NUR ---
Nursing Progress Note Legal hold: LPS Client on involuntary status for GD Report received from nurse with use of SBAR: Ann Marie Martinez RN Why are they here: The patient is a conserved 38 year old female admitted on a 5150 hold for GD. Patient has h/o mild intellect disorder, bipolar and schizophrenia and was BIB her prison staff who reported she had been non-compliant with medications, was violent towards others, verbally hostile with staff, throwing objects and spitting. A 5150 was written for GD. U tox was negative. She reported AH & VH, Voices are taking me away. Assessment What has happened this shift: Patient awoke in a bad mood, started demanding items for her "bucket" that she did not have or wanting doubles, insisting on tampons and sanitary napkins. Threw sanitary napkins in trash. Patient threw an empty water pitcher in her room, threw clothes out of room into hallway. Patient became more out of control until TRSITIAN Muñoz intervened and we were able to meet her needs in timely manner. Ativan 1 mg was given with good effect. Patient does have area of cellulitis right interior thigh, Dr. Evans started her on Clindamycin. S/I, H/I: Denies. A/VH: Denies. Sleep: 6.75 hrs. NOC, napped x 2 during day. ADL's: Patient did shower, but stated she washed her hair yesterday. Group attendance: No Were meds taken: Yes. Wants Depakene syrup. Any med S/E: None Mental Status Exam Appearance: Disheveled, however appropriately dressed Eye contact: Good Behavior: Patient displays poor impulse control if she does not feel that she is getting everything she wants at a particular moment. Calmed down after morning "windup". Speech: Congruent to mood. Clear. Mood: Ranges from loud and angry to soft and appropriate Affect: Angry to blunted. Thought process: Tangential, Thought Content: Preoccupation with material needs, food, clothing, medications, and personal hygiene items. Cognition: A&O X3 (not to why she is here) Insight: Impaired. Judgment: Impaired. Interventions PRN's used: Nicotine Gaby. X2, Tylenol, Chloraseptic Gaby., Ativan Therapeutic interventions: Introduced self and established rapport, maintained a safe and therapeutic environment, monitored behavior and need for intervention, provided clear and simple instructions, reoriented to reality as needed, and maintained Q 15 min safety checks. Restraints/seclusion/emergency medication: N/A Justification of Continued Inpatient Treatment: Pt. requires interruption of current crisis, medication adjustments, and a safe and therapeutic environment.
[2018-10-21 19:55] VITALS: BP 145/87
[2018-10-21] MEDS: Melatonin 3mg tablet PO SCH (21:15)
[2018-10-21] MEDS: metoprolol succinate 25mg (24-HOUR) SR. Tablet PO SCH (21:15)
[2018-10-22] MEDS: LORazepam 1 MG tablet PO PRN (00:17)
[2018-10-22] MEDS: clindamycin 150mg capsule PO SCH ×4 (02:00→21:08)
--- NOTE | 2018-10-22 03:43 | NUR ---
Nursing Progress Note: Legal hold: LPS Client on involuntary status for GD Report received from TRISTIAN Muñoz with use of SBAR. Why are they here: The patient is a conserved 38 year old female admitted on a 5150 hold for GD. Patient has h/o mild intellect disorder, bipolar and schizophrenia and was BIB her half-way staff who reported she had been non-compliant with medications, was violent towards others, verbally hostile with staff, throwing objects and spitting. A 5150 was written for GD. U tox was negative. She reported AH & VH, Voices are taking me away. Assessment What has happened this shift: The patient was seen in her room at shift change. There is a sitter at bedside. She agreed to 1:1 at her bedside. The patient reports that she lives at [facility], and doesn't want to return there. "They won't help me at all, nobody will walk with me, take me shopping, sometimes I just need space, and can't have it." She reports pain in left ankle, "nobody cares that I hurt, and have to walk on it at work. I'm sick of the fuckin' job, I would rather stay at the house." The patient was not overly demanding tonight, and spent it in her room isolating. She was compliant with medications, and requested PRN Ativan after trying to sleep and not able to due to anxiety. The patient declines talking about the "voices." She has slept since receiving Ativan. S/I, H/I: Denies A/VH: Denies, but can be seen responding. Sleep: See sleep hours. ADL's: Independent, but needs encouragement. Group attendance: No groups at [facility]. Were meds taken: Yes Any med S/E: None Mental Status Exam Appearance: Disheveled, however appropriately dressed in red scrubs and t-shirt. Eye contact: Good Behavior: Cooperative, restless, anxious. Speech: Hyperverbal, tangential Mood: Restless, anxious Affect: Animated Thought process: Tangential with ruminating thoughts Thought Content: Preoccupation with [facility] Cognition: A&O X3 (not to why she is here) Insight: Poor Judgment: Poor Interventions PRN's used: Nicotine lozenge, Lorazepam. Therapeutic interventions: Introduced self and established rapport, maintained a safe and therapeutic environment, monitored behavior and need for intervention, provided clear and simple instructions, reoriented to reality as needed, and maintained Q 15 min safety checks. Restraints/seclusion/emergency medication: N/A Justification of Continued Inpatient Treatment: Pt. requires interruption of current crisis, medication adjustments, and a safe and therapeutic environment.
[2018-10-22] MEDS: gabapentin 300mg capsule PO SCH ×3 (07:06→21:09)
[2018-10-22] MEDS: vitamin D (cholecalciferol) 1,000 unit tablet PO SCH (07:06)
[2018-10-22] MEDS: docusate sod 250mg capsule PO SCH ×2 (07:08→21:09)
[2018-10-22] MEDS: lithium carbonate 300mg SR tablet (LithoBID) PO SCH ×2 (07:08→21:11)
[2018-10-22] MEDS: metFORMIN 500mg tablet PO SCH ×2 (07:08→17:28)
[2018-10-22] MEDS: lisinopril 20mg tablet PO SCH (07:09)
[2018-10-22] MEDS: benztropine 1mg tablet PO SCH ×2 (07:09→21:10)
[2018-10-22] MEDS: loratadine 10mg tablet PO SCH (07:09)
[2018-10-22] MEDS: pantoprazole 40mg Tablet.DR PO SCH (07:23)
[2018-10-22] MEDS: DESOGESTREL ETHINYL ESTRADIOL PO SCH (07:28)
[2018-10-22 08:00] VITALS: BP 107/82
[2018-10-22] MEDS: nicotine 21mg patch - 24 hr TD SCH (08:00)
[2018-10-22] MEDS: divalproex sodium 250mg tablet PO SCH ×2 (08:33→21:09)
[2018-10-22] MEDS: Icosapent Ethyl (Vascepa) 2 CAP) PO SCH ×2 (08:33→21:11)
[2018-10-22] MEDS: Linaclotide (Linzess) 72 MCG) PO SCH (08:33)
[2018-10-22] MEDS: PALIPERIDONE 3 MG TAB.ER.24 PO SCH ×2 (08:34→21:09)
[2018-10-22] MEDS: benzocaine/menthol oral lozeng 1 EACH BOX MM PRN (09:11)
--- NOTE | 2018-10-22 11:08 | NUR ---
Initial: Pt admit w/ psychosis PO 75-100% carb controlled meals meeting needs. LBM 10/20. No nutrition concerns at this time. Will continue to monitor. Addendum: 10/22/18 at [address] Amended: Links added.
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
[2018-10-22] MEDS: NICOTINE POLACRILEX 2 MG LOZENGE MM PRN (17:26)
[2018-10-22] MEDS ORDERED: polyvinyl alcohol ophthalmic drops 15ml bottle EACHEYE PRN (19:15)
[2018-10-22 20:00] VITALS: BP_SYST 145; BP_SYST 152; BP_DIAS 87; BP_DIAS 89
[2018-10-22] MEDS: metoprolol succinate 25mg (24-HOUR) SR. Tablet PO SCH (21:09)
[2018-10-22] MEDS: lactobacillus rhamnosus 10,000 MMU CELLS/CAPSULE PO SCH (21:10)
[2018-10-22] MEDS: Melatonin 3mg tablet PO SCH (21:17)
[2018-10-23] MEDS: clindamycin 150mg capsule PO SCH ×4 (02:00→21:12)
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
[2018-10-23] MEDS: Linaclotide (Linzess) 72 MCG) PO SCH (07:53)
[2018-10-23] MEDS: DESOGESTREL ETHINYL ESTRADIOL PO SCH (07:53)
[2018-10-23] MEDS: Icosapent Ethyl (Vascepa) 2 CAP) PO SCH ×2 (07:53→21:18)
[2018-10-23] MEDS: metFORMIN 500mg tablet PO SCH ×2 (07:53→17:48)
[2018-10-23] MEDS: vitamin D (cholecalciferol) 1,000 unit tablet PO SCH (07:54)
[2018-10-23] MEDS: lithium carbonate 300mg SR tablet (LithoBID) PO SCH ×2 (07:54→21:15)
[2018-10-23] MEDS: benztropine 1mg tablet PO SCH ×2 (07:56→21:12)
[2018-10-23] MEDS: lactobacillus rhamnosus 10,000 MMU CELLS/CAPSULE PO SCH ×2 (07:57→21:13)
[2018-10-23] MEDS: lisinopril 20mg tablet PO SCH (07:57)
[2018-10-23] MEDS: gabapentin 300mg capsule PO SCH ×3 (07:59→21:15)
[2018-10-23] MEDS: divalproex sodium 250mg tablet PO SCH ×2 (07:59→21:13)
[2018-10-23 08:00] VITALS: BP 144/90
[2018-10-23] MEDS: loratadine 10mg tablet PO SCH (08:00)
[2018-10-23] MEDS: docusate sod 250mg capsule PO SCH ×2 (08:00→21:13)
[2018-10-23] MEDS: pantoprazole 40mg Tablet.DR PO SCH (08:00)
[2018-10-23] MEDS: nicotine 21mg patch - 24 hr TD SCH (08:00)
[2018-10-23] MEDS: PALIPERIDONE 3 MG TAB.ER.24 PO SCH ×2 (08:00→21:13)
--- NOTE | 2018-10-23 09:00 | NUR ---
Change in Observation Status: Patient's behavior has improved markedly since admission. She has been maintained on Line of Sight (LOS) during day shifts. Today patient was introduced to the idea of being removed from LOS and increase her self responsibility during day shift. She stated she liked this idea and asked staff to fist bump with her in agreement. Dr. Viera called and order given to move patient from LOS to every 15 minute observation. Patient agreed to a safety plan where she would contact staff if she felt a need to be aggressive or simply needed the company of staff. Patient gave verbal agreement to maintain her safety and that of others.
[2018-10-23] MEDS: NICOTINE POLACRILEX 2 MG LOZENGE MM PRN (09:59)
[2018-10-23] MEDS: acetaminophen 325mg tablet PO PRN (15:00)
--- NOTE | 2018-10-23 17:36 | NUR ---
Nursing Progress Note: Legal hold: LPS Client on involuntary status for GD Report received from nurse with use of SBAR: TRISTIAN Jaeger Why are they here: The patient is a conserved 38 year old female admitted on a 5150 hold for GD. Patient has h/o mild intellect disorder, bipolar and schizophrenia and was BIB her long-term staff who reported she had been non-compliant with medications, was violent towards others, verbally hostile with staff, throwing objects and spitting. A 5150 was written for GD. U tox was negative. She reported AH & VH, Voices are taking me away. Assessment What has happened this shift: Received Pt sleeping in her room w/o distress at the beginning of the shift. 1:1 observation continued this am until mid morning when it was stopped due to the Pt being pleasant, asking for needs to be met appropriately and less intrusive and invasive with other clients and their belongings. Selective limit setting rewards is helping to decrease irritability and demands, although still needy and intrusive at times. Mood throughout day was pleasant and cooperative. Took nap in late morning and attempted to nap in the afternoon.Pt receptive to conversation and continues making her needs known in increasingly appropriate ways. Did not attend groups. C/O REAL and received tylenol with good effect. Talked about people in the home she lives needing education about MH so they dont shell machine operator her. S/I, H/I: Denies A/VH: Denies, However appears to be internally preoccupied at times Sleep: Took nap after breakfast ADL's: Requires direction and encouragement from staff Group attendance: No Were meds taken: Yes Any med S/E: None Mental Status Exam Appearance: Moderately groomed Eye contact: Good Behavior: Cooperative, restless, anxious, poor boundaries, intrusive at times yet increasingly redirectable Speech: Coherent, slow Mood: Pleasant Affect: Animated Thought process: Tangential with ruminating thoughts Thought Content: Preoccupation with material needs, food, clothing, medications, and medical conditions Cognition: A&O X3 (not to why she is here) Insight: Poor Judgment: Poor Interventions PRN's used: Akwa tears, Nicotine Gaby. X1, MOM, Tylenol. Therapeutic interventions: Introduced self and established rapport, maintained a safe and therapeutic environment, monitored behavior and need for intervention, provided clear and simple instructions, reoriented to reality as needed, and maintained Q 15 min safety checks. Restraints/seclusion/emergency medication: N/A Justification of Continued Inpatient Treatment: Pt. requires interruption of current crisis, medication adjustments, and a safe and therapeutic environment.
[2018-10-23 20:00] VITALS: BP 142/96
[2018-10-23] MEDS: Melatonin 3mg tablet PO SCH (21:14)
[2018-10-23] MEDS: metoprolol succinate 25mg (24-HOUR) SR. Tablet PO SCH (21:15)
[2018-10-24] MEDS: clindamycin 150mg capsule PO SCH ×4 (02:00→20:13)
--- NOTE | 2018-10-24 03:32 | NUR ---
Nursing Progress Note: Legal hold: LPS Client on involuntary status for GD Report received from TRISTIAN Pastor with use of SBAR. Why are they here: The patient is a conserved 38 year old female admitted on a 5150 hold for GD. Patient has h/o mild intellect disorder, bipolar and schizophrenia and was BIB her long-term staff who reported she had been non-compliant with medications, was violent towards others, verbally hostile with staff, throwing objects and spitting. A 5150 was written for GD. U tox was negative. She reported AH & VH, Voices are taking me away. Assessment What has happened this shift: The patient was sitting in her room at shift change. She agreed to 1:1 at his bedside. She reports that she mostly slept good last night, but had bad nightmares ~0300 that woke her. The patient c/o vaginal and anal itching, "sometimes I just want to tear a hole in it. It just needs to be fixed." The patient has multiple requests, but is not overly demanding. "I need some new toothpaste, this doesn't work as well as mine, and some alcohol-free mouthwash, and a multi-vitamin in the morning. The patient spent the evening in her room, took her medications and went to bed. S/I, H/I: Denies A/VH: Denies. Sleep: See sleep hours. ADL's: Independent, but needs encouragement. Group attendance: No groups at casting sorter. Were meds taken: Yes Any med S/E: None Mental Status Exam Appearance: Disheveled, however appropriately dressed in white vimal's and t-shirt. Eye contact: Good Behavior: Cooperative, restless, anxious. Speech: Hyperverbal, tangential Mood: "tired" Affect: Blunted with brightening Thought process: Tangential with ruminating thoughts Thought Content: Preoccupation with [facility] Cognition: A&O X4 Insight: Poor Judgment: Poor Interventions PRN's used: Therapeutic interventions: Introduced self and established rapport, maintained a safe and therapeutic environment, monitored behavior and need for intervention, provided clear and simple instructions, reoriented to reality as needed, and maintained Q 15 min safety checks. Restraints/seclusion/emergency medication: N/A Justification of Continued Inpatient Treatment: Pt. requires interruption of current crisis, medication adjustments, and a safe and therapeutic environment.
[2018-10-24] MEDS: vitamin D (cholecalciferol) 1,000 unit tablet PO SCH (07:16)
[2018-10-24] MEDS: lactobacillus rhamnosus 10,000 MMU CELLS/CAPSULE PO SCH ×2 (07:16→20:13)
[2018-10-24] MEDS: lithium carbonate 300mg SR tablet (LithoBID) PO SCH ×2 (07:17→20:12)
[2018-10-24] MEDS: metFORMIN 500mg tablet PO SCH ×2 (07:18→17:11)
[2018-10-24] MEDS: lisinopril 20mg tablet PO SCH (07:18)
[2018-10-24] MEDS: docusate sod 250mg capsule PO SCH ×2 (07:19→20:14)
[2018-10-24] MEDS: gabapentin 300mg capsule PO SCH ×3 (07:19→20:11)
[2018-10-24] MEDS: benztropine 1mg tablet PO SCH ×2 (07:19→20:14)
[2018-10-24] MEDS: loratadine 10mg tablet PO SCH (07:20)
[2018-10-24] MEDS: DESOGESTREL ETHINYL ESTRADIOL PO SCH (07:45)
[2018-10-24] MEDS: divalproex sodium 250mg tablet PO SCH ×2 (07:46→20:16)
[2018-10-24] MEDS: PALIPERIDONE 3 MG TAB.ER.24 PO SCH ×2 (07:47→20:12)
[2018-10-24] MEDS: Icosapent Ethyl (Vascepa) 2 CAP) PO SCH ×2 (07:52→20:11)
[2018-10-24 08:00] VITALS: BP 140/74
[2018-10-24] MEDS: nicotine 21mg patch - 24 hr TD SCH (08:00)
[2018-10-24] MEDS: Linaclotide (Linzess) 72 MCG) PO SCH (08:06)
[2018-10-24] MEDS: pantoprazole 40mg Tablet.DR PO SCH (08:07)
[2018-10-24] MEDS: multivitamins, therapeutics tablet PO SCH (08:07)
[2018-10-24] MEDS: diphenhydrAMINE 2%/zinc acetate cream TP SCH ×3 (09:35→20:16)
[2018-10-24] MEDS: NICOTINE POLACRILEX 2 MG LOZENGE MM PRN (14:54)
--- NOTE | 2018-10-24 15:06 | NUR ---
Nursing Progress Note: Pratibha Legal hold: LPS Client on involuntary status for GD Report received from: Why are they here: The patient is a conserved 38 year old female admitted on a 5150 hold for GD. Patient has h/o mild intellect disorder, bipolar and schizophrenia and was BIB her retirement staff who reported she had been non-compliant with medications, was violent towards others, verbally hostile with staff, throwing objects and spitting. A 5150 was written for GD. U tox was negative. She reported AH & VH, Voices are taking me away. Assessment What has happened this shift: Client was in bed to begin this shift. Aroused easily for vital signs and readily entered into a behavioral contract for the day with this lead technical writer. Client was compliant with all aspects of her care but did refuse blood glucose check this am. Redirection was attempted but client did not wish to, "get my finger stuck again". Did not require prompts and conducted a shower this shift. Rested in bed without problems after shower and remained until lunch. Client has been visible on unit and has been social with staff and peers . S/I, H/I: Denies A/VH: Denies. Sleep: See sleep hours. ADL's: Independent, but needs encouragement. Group attendance: Were meds taken: Yes Any med S/E: None Mental Status Exam Appearance: Disheveled, however appropriately dressed in white vimal's and t-shirt. Eye contact: Good Behavior: Cooperative, restless, anxious. Speech: slow Mood: "tired" Affect: Bright Thought process: Tangential with ruminating thoughts Thought Content: Preoccupation with [facility] Cognition: A&O X4 Insight: Fair Judgment: Fair Interventions PRN's used: Therapeutic interventions: Introduced self and established rapport, maintained a safe and therapeutic environment, monitored behavior and need for intervention, provided clear and simple instructions, reoriented to reality as needed, and maintained Q 15 min safety checks. Restraints/seclusion/emergency medication: N/A Justification of Continued Inpatient Treatment: Pt. requires interruption of current crisis, medication adjustments, and a safe and therapeutic environment.
[2018-10-24 19:16] VITALS: BP 127/83
[2018-10-24] MEDS: metoprolol succinate 25mg (24-HOUR) SR. Tablet PO SCH (20:11)
[2018-10-24] MEDS: Melatonin 3mg tablet PO SCH (20:12)
--- NOTE | 2018-10-24 22:23 | NUR ---
Nursing Progress Note: Pratibha Legal hold: LPS Client on involuntary status for GD Report received from: TRISTIAN Baird Why are they here: The patient is a conserved 38 year old female admitted on a 5150 hold for GD. Patient has h/o mild intellect disorder, bipolar and schizophrenia and was BIB her long-term staff who reported she had been non-compliant with medications, was violent towards others, verbally hostile with staff, throwing objects and spitting. A 5150 was written for GD. U tox was negative. She reported AH & VH, Voices are taking me away. Assessment What has happened this shift: Client was in her room to begin this shift and was compliant with all aspects of her care. Client seemed to be in a good mood this evening and seems to be looking forward to being discharged. Client has been visible on unit and has been social with staff and peers. At this time, client seems to be resting well. S/I, H/I: Denies A/VH: Denies. Sleep: No complaints at this time during this shift. ADL's: Independent, but needs encouragement. Group attendance: Were meds taken: Yes Any med S/E: None Mental Status Exam Appearance: Disheveled, however appropriately dressed in white vimal's and t-shirt. Eye contact: Good Behavior: Cooperative, restless, anxious. Speech: slow Mood: "tired" Affect: Bright Thought process: Tangential with ruminating thoughts Thought Content: Preoccupation with [facility] Cognition: A&O X4 Insight: Fair Judgment: Fair Interventions PRN's used: None at this time Therapeutic interventions: Introduced self and established rapport, maintained a safe and therapeutic environment, monitored behavior and need for intervention, provided clear and simple instructions, reoriented to reality as needed, and maintained Q 15 min safety checks. Restraints/seclusion/emergency medication: N/A Justification of Continued Inpatient Treatment: Pt. requires interruption of current crisis, medication adjustments, and a safe and therapeutic environment.
[2018-10-24] MEDS: acetaminophen 325mg tablet PO PRN (23:15)
[2018-10-24] MEDS: LORazepam 1 MG tablet PO PRN (23:15)
[2018-10-25] MEDS: clindamycin 150mg capsule PO SCH ×2 (02:29→08:16)
[2018-10-25] MEDS: metFORMIN 500mg tablet PO SCH (07:19)
[2018-10-25] MEDS ORDERED: PALI6TAB6 PO (07:51)
[2018-10-25] MEDS ORDERED: PANT40TA4 PO (07:51)
[2018-10-25] MEDS ORDERED: DOCU250C96 PO (07:51)
[2018-10-25] MEDS ORDERED: BENZ1TAB7 PO (07:51)
[2018-10-25] MEDS ORDERED: NICO-687 TD (07:51)
[2018-10-25] MEDS ORDERED: DIVA500T9 PO (07:51)
[2018-10-25] MEDS ORDERED: LIT300C PO (07:51)
[2018-10-25] MEDS ORDERED: LISI-600 PO (07:51)
[2018-10-25 08:00] VITALS: BP 125/82
[2018-10-25] MEDS: nicotine 21mg patch - 24 hr TD SCH (08:00)
[2018-10-25] MEDS: lactobacillus rhamnosus 10,000 MMU CELLS/CAPSULE PO SCH (08:15)
[2018-10-25 08:16] VITALS: BP_SYST 126
[2018-10-25] MEDS: lisinopril 20mg tablet PO SCH (08:16)
[2018-10-25] MEDS: vitamin D (cholecalciferol) 1,000 unit tablet PO SCH (08:16)
[2018-10-25] MEDS: gabapentin 300mg capsule PO SCH ×2 (08:16→12:06)
[2018-10-25] MEDS: multivitamins, therapeutics tablet PO SCH (08:16)
[2018-10-25] MEDS: PALIPERIDONE 3 MG TAB.ER.24 PO SCH (08:17)
[2018-10-25] MEDS: lithium carbonate 300mg SR tablet (LithoBID) PO SCH (08:17)
[2018-10-25] MEDS: docusate sod 250mg capsule PO SCH (08:17)
[2018-10-25] MEDS: divalproex sodium 250mg tablet PO SCH (08:18)
[2018-10-25] MEDS: Linaclotide (Linzess) 72 MCG) PO SCH (08:18)
[2018-10-25] MEDS: DESOGESTREL ETHINYL ESTRADIOL PO SCH (08:18)
[2018-10-25] MEDS: Icosapent Ethyl (Vascepa) 2 CAP) PO SCH (08:19)
[2018-10-25] MEDS: diphenhydrAMINE 2%/zinc acetate cream TP SCH ×2 (08:27→12:06)
[2018-10-25] MEDS: benztropine 1mg tablet PO SCH (08:29)
[2018-10-25] MEDS: loratadine 10mg tablet PO SCH (08:30)
[2018-10-25] MEDS: pantoprazole 40mg Tablet.DR PO SCH (08:59)
--- NOTE | 2018-10-25 08:59 | NUR ---
DISCHARGE PLANNING: Patient's House Design Printing Machine Setter, Idalia Olivares, from [facility], @ [phone] will be here to pickup pt @ 1:00pm. She requested pt's medications be ordered through [facility]. This credit underwriter confirmed w/pt's Public Guardian, Jane Victoria @ [phone], to have patient's completed renewal conservatorship paperwork sent with Ms. Olivares. Ms. Victoria also requested a copy of D/C pkt be sent to her. A note of this was put in D/C section. Noris Soliman, ACSW
--- NOTE | 2018-10-25 13:04 | NUR ---
Discharge Note Patient discharged to [facility] via ambulatory, accompanied by her flat screen worker Idalia, with all her personal belongings as documented per inventory sheet. All discharge information including current administration of medication reviewed with patient and her flat screen worker. Both patient and flat screen worker verbalized understanding of information. Patient also given her home medications and discharge medications obtained from [facility]. Patient's condition markedly improved since admission when she presented as agitated and aggressive. Left the unit in a calm and controlled manner, stating she felt "great." Patient was not given nicotine replacement products because she plans to continue smoking after discharge.
== END 2018-10-25 13:04 | disposition short-term general hospital (02) | DRG 885 ==
LOC: ADULT MH 15:19
PROVIDERS: ADMIT Psychiatry & Neurology Psychiatry; ATTEND Psychiatry & Neurology Psychiatry
DX: F25.0 Schizoaffective disorder, bipolar type (principal); R45.851 Suicidal ideations; E11.9 Type 2 diabetes mellitus without complications; E55.9 Vitamin D deficiency, unspecified; E78.1 Pure hyperglyceridemia; F17.210 Nicotine dependence, cigarettes, uncomplicated; J45.909 Unspecified asthma, uncomplicated; K59.00 Constipation, unspecified; I10 Essential (primary) hypertension; D53.9 Nutritional anemia, unspecified; E66.3 Overweight; K21.9 Gastro-esophageal reflux disease without esophagitis; K58.9 Irritable bowel syndrome, unspecified; Z68.28 Body mass index [BMI] 28.0-28.9, adult; Z91.19 Patient's noncompliance with other medical treatment and regimen; Z88.1 Allergy status to other antibiotic agents; Z79.899 Other long term (current) drug therapy
CPT/HCPCS: 36415; 73600; 80053; 80061; 80164; 80178; 80305; 80320; 81003; 81025; 82948; 83036; 84443; 85025; 87081; 94640; 94760; 99285; J1200; J1630; J7626; Q0163; Z7610

== ENCOUNTER 2023-03-30 18:56 | Emergency (ER) | payer MEDICARE, MEDICAID ==
[~2023-03-30] VITALS: Ht 182.9 cm; Wt 86.8 kg
[~2023-03-30 18:56] MED LIST changes: -ASEN10TA; -BENA20TA82 PO; -BENZ0.5T27 PO; +BENZ1TAB78 PO; -CLOM50CA2 PO; -DIPH50CA37 PO; +DIVA500T9 PO; -DOCU250C15 PO; +DOCU250C96 PO; -HALO5TAB PO; -HYDR50CA PO; -ICOS1CAP PO; +LISI20TA28 PO; +LIT300C PO; -LITH300T26 PO; -MELA3TAB64 PO; +NICO-687 TD; -OMEP-50 PO; +PALI6TAB6 PO; +PANT40TA54 PO; -POLY17PO10 PO
[2023-03-30 20:21] LABS: BASOPHILS % (AUTO) 0.4 % (0-1); EOSINOPHILS % (AUTO) 0 % (0-6); HEMATOCRIT 37.2 % (35.0-45.0); HEMOGLOBIN 12.6 g/dl (12.0-16.0); LYMPHOCYTES # (AUTO) 3.8 X10'3 (1.1-4.8); LYMPHOCYTES % (AUTO) 41.3 % (21-51); MEAN CORPUSCULAR HEMOGLOBIN 34.3 PG (27.0-31.0); MEAN CORPUSCULAR VOLUME 100.9 FL (78-98); MEAN PLATELET VOLUME 7.2 FL (7.4-10.4); MONOCYTES # (AUTO) 0.9 X10'3 (0-0.9); MONOCYTES % (AUTO) 9.8 % (2-12); NEUTROPHILS # (AUTO) 4.5 X10'3 (1.8-7.7); NEUTROPHILS % (AUTO) 48.5 % (42-75); PLATELET COUNT 371 X10'3 (140-440); RED BLOOD COUNT 3.69 X10'6 (4.20-5.60); RED CELL DISTRIBUTION WIDTH 14.2 % (11.5-14.5); WHITE BLOOD COUNT 9.3 X10'3 (4.5-11.0)
[2023-03-30 20:35] LABS: ALANINE AMINOTRANSFERASE 49 U/L (12-78); ALBUMIN 3.7 G/DL (3.4-5.0); ALKALINE PHOSPHATASE 82 IU/L (46-116); ANION GAP 9 (8-16); ASPARTATE AMINO TRANSFERASE 24 U/L (10-37); BILIRUBIN,TOTAL 0.3 MG/DL (0.1-1.0); BLOOD UREA NITROGEN 9 MG/DL (7-18); BUN/CREATININE RATIO 12.9 (10.0-20.0); CALCIUM 9.2 MG/DL (8.5-10.1); CHLORIDE 105 MMOL/L (99-107); GLUCOSE 130 MG/DL (70-104); POTASSIUM 3.9 MMOL/L (3.5-5.1); SODIUM 142 MMOL/L (135-145); TOTAL CARBON DIOXIDE 28.5 MMOL/L (24-32); TOTAL PROTEIN 7.3 G/DL (6.4-8.2); eCRCL 123 ML/MIN; eGFR > 90 ML/MIN
[2023-03-30 20:44] LABS: ETHANOL < 10 MG/DL (<10); THYROID STIMULATING HORMONE 1.19 ulU/ml (0.34-4.50)
[2023-03-31] MEDS ORDERED: BENZ1TAB78 PO (01:31)
[2023-03-31] MEDS ORDERED: METO50TA17 PO (01:31)
[2023-03-31] MEDS ORDERED: MIRA50TA PO ×2 (01:31→02:54)
[2023-03-31] MEDS ORDERED: HALO50AM2 IM (01:51)
[2023-03-31] MEDS ORDERED: MV-M1CAP15 PO (01:51)
[2023-03-31] MEDS ORDERED: SENN-137 PO (01:51)
[2023-03-31] MEDS ORDERED: ATOR10TA87 PO (01:51)
[2023-03-31] MEDS ORDERED: TRAZ-251 PO ×3 (01:51→02:53)
[2023-03-31] MEDS ORDERED: POLY17PO10 PO (01:51)
[2023-03-31] MEDS ORDERED: LAMO25TA5 PO (01:51)
[2023-03-31] MEDS ORDERED: HALO20TA7 PO ×2 (01:51→02:50)
[2023-03-31] MEDS ORDERED: CLOZ25TA12 PO ×2 (01:51→03:06)
[2023-03-31] MEDS ORDERED: ATOR10TA70 PO (02:42)
[2023-03-31] MEDS ORDERED: ASCO500T22 PO (02:44)
[2023-03-31] MEDS ORDERED: OMEP20CA16 PO (02:44)
[2023-03-31] MEDS ORDERED: LAMO25TA72 PO (02:49)
[2023-03-31] MEDS ORDERED: LEVO125T8 PO (02:50)
[2023-03-31] MEDS ORDERED: METO50TA16 PO (02:50)
[2023-03-31] MEDS ORDERED: DOCU100C40 PO (02:50)
[2023-03-31] MEDS ORDERED: GABA600T13 PO (02:55)
[2023-03-31 04:18] LABS: URINE HCG NEGATIVE (NEG)
[2023-03-31 04:22] LABS: BILIRUBIN,URINE NEGATIVE (Neg); CLARITY,URINE SLIGHTLY CLOUDY (Clear); COLOR,URINE YELLOW (Yellow); GLUCOSE, URINE NEGATIVE (Neg); KETONES,URINE NEGATIVE (Neg); LEUKOCYTE ESTERASE ,URINE NEGATIVE (Neg); NITRITES, URINE NEGATIVE (Neg); OCCULT BLOOD,URINE TRACE-INTACT (Neg); PH,URINE 7.5 (4.8-8.0); PROTEIN,URINE NEGATIVE (Neg)
[2023-03-31 04:33] LABS: URINE AMPHETAMINE SCREEN NEGATIVE (Neg); URINE BARBITUATE SCREEN NEGATIVE (Neg); URINE BENZODIAZEPINES SCREEN NEGATIVE (Neg); URINE CANNABINOID SCREEN NEGATIVE (Neg); URINE COCAINE SCREEN NEGATIVE (Neg); URINE METHADONE SCREEN NEGATIVE (Neg); URINE OPIATE SCREEN NEGATIVE (Neg); URINE PHENCYCLIDINE SCREEN NEGATIVE (Neg)
[2023-03-31 04:37] LABS: UA COLLECTION TYPE NON-SPECIFIED
[2023-03-31 04:38] LABS: MUCUS STRANDS NONE SEEN /LPF (Neg); SQUAMOUS EPITHELIAL CELL,UR FEW /LPF (FEW); TRANSITIONAL EPI CELLS,URINE FEW /HPF
[2023-03-31 04:39] LABS: RBC,URINE 0-2 /HPF (0-2); WBC,URINE 0-4 /HPF (0-4)
[2023-03-31 04:40] LABS: AMORPHOUS PHOSPHATES 2+; BACTERIA,URINE FEW /HPF (Neg)
[2023-03-31] MEDS: metoprolol tartrate 50mg tablet PO SCH ×2 (08:47→20:31)
[2023-03-31] MEDS: lamoTRIgine 25mg tablet PO SCH (09:08)
[2023-03-31] MEDS: docusate sod 100mg capsule PO SCH ×2 (09:08→20:31)
[2023-03-31] MEDS: ascorbic acid 500mg tablet PO SCH (09:08)
[2023-03-31] MEDS: pantoprazole 40mg Tablet.DR PO SCH (09:08)
[2023-03-31] MEDS: gabapentin 300mg capsule PO SCH ×2 (09:08→16:07)
[2023-03-31] MEDS: atorvastatin 10mg tablet PO SCH (09:08)
[2023-03-31] MEDS: levoTHYROXINE 125mcg tablet PO SCH (09:08)
[2023-03-31] MEDS ORDERED: LORazepam 2 mg/ml vial IM ONE (10:10)
[2023-03-31] MEDS ORDERED: haloperidol lactate 5mg/ml inj IM ONE ×3 (10:10→18:55)
[2023-03-31] MEDS ORDERED: diphenhydrAMINE 50 mg/ml inj IM ONE (10:10)
[2023-03-31] MEDS ORDERED: ziprasidone IM 20mg inj **IM only IM ONE ×3 (10:35→18:40)
[2023-03-31] MEDS: NICOTINE POLACRILEX 2 MG LOZENGE BC PRN ×2 (13:12→18:07)
[2023-03-31] MEDS: traZODone 50mg tablet PO SCH (20:33)
[2023-03-31] MEDS: mirabegron 25mg ER tablet PO SCH (20:40)
[2023-03-31] MEDS ORDERED: haloperidol 5mg tablet PO SCH (21:00)
[2023-04-01] MEDS: gabapentin 300mg capsule PO SCH ×3 (01:56→16:51)
[2023-04-01] MEDS: NICOTINE POLACRILEX 2 MG LOZENGE BC PRN ×3 (01:58→16:50)
[2023-04-01] MEDS ORDERED: haloperidol lactate 5mg/ml inj IM ONE (05:15)
[2023-04-01] MEDS: atorvastatin 10mg tablet PO SCH (08:00)
[2023-04-01] MEDS: levoTHYROXINE 125mcg tablet PO SCH (09:02)
[2023-04-01] MEDS: docusate sod 100mg capsule PO SCH ×3 (09:06→20:23)
[2023-04-01] MEDS: lamoTRIgine 25mg tablet PO SCH (09:07)
[2023-04-01] MEDS: pantoprazole 40mg Tablet.DR PO SCH (09:08)
[2023-04-01] MEDS: ascorbic acid 500mg tablet PO SCH (09:09)
[2023-04-01] MEDS: metoprolol tartrate 50mg tablet PO SCH ×3 (09:09→20:23)
[2023-04-01] MEDS: hydrOXYzine 25 MG tablet PO PRN (18:38)
[2023-04-01] MEDS: CLOZAPINE 25 MG oral disintegrating tablet PO SCH ×2 (20:00→20:23)
[2023-04-01] MEDS: mirabegron 25mg ER tablet PO SCH ×2 (20:23→21:00)
[2023-04-01] MEDS: traZODone 50mg tablet PO SCH ×2 (20:24→21:00)
[2023-04-02] MEDS: levoTHYROXINE 125mcg tablet PO SCH (08:00)
[2023-04-02] MEDS: ascorbic acid 500mg tablet PO SCH (08:00)
[2023-04-02] MEDS: pantoprazole 40mg Tablet.DR PO SCH (08:42)
[2023-04-02] MEDS: CLOZAPINE 25 MG oral disintegrating tablet PO SCH ×2 (08:42→19:50)
[2023-04-02] MEDS: gabapentin 300mg capsule PO SCH ×4 (08:43→21:05)
[2023-04-02] MEDS: lamoTRIgine 25mg tablet PO SCH (08:43)
[2023-04-02] MEDS: atorvastatin 10mg tablet PO SCH (08:43)
[2023-04-02] MEDS: docusate sod 100mg capsule PO SCH ×2 (08:43→19:52)
[2023-04-02] MEDS: metoprolol tartrate 50mg tablet PO SCH ×2 (08:44→19:59)
[2023-04-02] MEDS: NICOTINE POLACRILEX 2 MG LOZENGE BC PRN ×2 (09:50→19:50)
[2023-04-02] MEDS ORDERED: HALLS - SOOTHE MENTHOL 1.8 MG cough drop LOZENGE MM PRN (12:40)
[2023-04-02] MEDS: hydrOXYzine 25 MG tablet PO PRN (19:50)
[2023-04-02] MEDS: mirabegron 25mg ER tablet PO SCH (19:51)
[2023-04-02] MEDS: traZODone 50mg tablet PO SCH (20:01)
[2023-04-03 06:11] VITALS: BP_DIAS 100; TEMP 99.1; O2SAT 98
[2023-04-03 07:50] VITALS: RESP 16
[2023-04-03] MEDS: docusate sod 100mg capsule PO SCH (08:59)
[2023-04-03] MEDS: pantoprazole 40mg Tablet.DR PO SCH (08:59)
[2023-04-03] MEDS: levoTHYROXINE 125mcg tablet PO SCH (08:59)
[2023-04-03] MEDS: atorvastatin 10mg tablet PO SCH (08:59)
[2023-04-03] MEDS: CLOZAPINE 25 MG oral disintegrating tablet PO SCH (08:59)
[2023-04-03] MEDS: gabapentin 300mg capsule PO SCH ×2 (08:59→12:37)
[2023-04-03] MEDS: lamoTRIgine 25mg tablet PO SCH (08:59)
[2023-04-03 09:03] VITALS: BP_SYST 165; PULSE 85
[2023-04-03] MEDS: metoprolol tartrate 50mg tablet PO SCH (09:03)
[2023-04-03] MEDS: ascorbic acid 500mg tablet PO SCH (09:04)
[2023-04-03] MEDS: NICOTINE POLACRILEX 2 MG LOZENGE BC PRN (12:37)
== END 2023-04-03 14:58 | disposition home or self-care (01) ==
LOC: ER 18:58
DX: R45.850 Homicidal ideations (principal); Z20.822 Contact with and (suspected) exposure to COVID-19; E11.9 Type 2 diabetes mellitus without complications; F31.9 Bipolar disorder, unspecified; Z91.041 Radiographic dye allergy status; Z79.899 Other long term (current) drug therapy
CPT/HCPCS: 36415; 80053; 80305; 80320; 81001; 81025; 82948; 84443; 85025; 87811; 96372; 99285; J1630